=== PATIENT | female | born 2000 | race Caucasian/White ===

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

== ENCOUNTER 2021-03-28 16:10 | Emergency (ER) | payer OTHER ==
[2021-03-28 17:00] VITALS: BP 99/60; PULSE 75; RESP 20; TEMP 98.4
--- NOTE | 2021-03-28 18:19 | ED ---
General Adult HPI - General Chief complaint: Skin/Abscess/Foreign Body Stated complaint: rash Time Seen by Provider: 03/28/21 18:09 Source: patient Mode of arrival: ambulatory Limitations: no limitations - History of Present Illness Initial comments: Patient presents to the ED complaining of having a painful red "bump" to her right lower quadrant abdominal wall for the past week or 2. Patient states that she saw her PCP for this issue, and she states that she was started on a course of Bactrim 3 days ago. Patient states that she has a history of MRSA, and she is concerned that her bump is from a MRSA infection. Patient denies trauma or injury, fever or chills, headache, chest pain, dyspnea, dizziness, nausea or vomiting, or any other symptoms or complaints. - Related Data Home Medications Medication Instructions Recorded Confirmed Docusate [Colace] 100 mg PO DAILY 10/14/18 10/14/18 Ferrous Sulfate [Feosol] 325 mg PO DAILY 10/14/18 10/14/18 Ondansetron [Zofran] 4 mg PO Q12HR PRN 10/14/18 10/14/18 Sertraline [Zoloft] 50 mg PO DAILY 10/14/18 10/14/18 Previous Rx's Medication Instructions Recorded Cephalexin [Keflex] 500 mg PO Q6HR #40 cap 10/14/18 Allergies Allergy/AdvReac Type Severity Reaction Status Date / Time No Known Allergies Allergy Verified 03/28/21 17:00 Review of Systems ROS Statement: Those systems with pertinent positive or pertinent negative responses have been documented in the HPI. ROS Other: All systems not noted in ROS Statement are negative. Past Medical History Past Medical History: No Reported History Additional Past Medical History / Comment(s): Cholestasis History of Any Multi-Drug Resistant Organisms: MRSA Date of last positivie culture/infection: 10/2010 MDRO Source:: Left lower leg wound Past Surgical History: Section Past Anesthesia/Blood Transfusion Reactions: No Reported Reaction Additional Past Anesthesia/Blood Transfusion Reaction / Comment(s): no anesthesia Past Psychological History: No Psychological Hx Reported Smoking Status: Vaper Past Alcohol Use History: None Reported Past Drug Use History: None Reported - Past Family History Mother Family Medical History: No Reported History General Exam Limitations: no limitations General appearance: alert, in no apparent distress Head exam: Present: atraumatic, normocephalic Eye exam: Present: normal appearance, EOMI ENT exam: Present: mucous membranes moist Respiratory exam: Present: normal lung sounds bilaterally. Absent: respiratory distress, wheezes, rales, rhonchi, stridor Cardiovascular Exam: Present: regular rate, normal rhythm, normal heart sounds, other (Normal radial pulses bilaterally) GI/Abdominal exam: Present: soft, other (A 2 cm x 1 cm tender, fluctuant, erythematous mass is noted to the patient's right lower quadrant abdominal wall consistent with superficial abscess). Absent: distended Neurological exam: Present: alert, oriented X3 Psychiatric exam: Present: normal affect, normal mood Skin exam: Present: warm, dry, intact Course Vital Signs 03/28/21 16:52 Temperature 98.4 F Pulse Rate 75 Respiratory 20 Rate Blood Pressure 99/60 O2 Sat by Pulse 100 Oximetry Procedures - Incision & Drainage Consent Obtained: verbal consent Indication: Abscess Site: abdomen Size (cm): 2 Anesthetic Used: lidocaine 1% Amount (mLs): 1 I&D Cleaning Method: Betadine Sterile Field Used?: Yes Scalpel Used: #11 Needle Aspiration Performed?: No Irrigation Performed?: No I&D Drainage Obtained: Pus, Blood Packing: Iodoform Culture Obtained?: No Patient Tolerated Procedure: well, no complications Medical Decision Making - Medical Decision Making A successful I&D was performed of the patient's abdominal wall abscess with drainage of purulent fluid. An iodoform packing was placed. Patient was instructed to complete the course of Bactrim that she is currently taking, and to follow up closely with her primary care provider. Patient was instructed to return to the ED should she not be able to follow up with her primary care provider for packing removal. Patient was counseled about abscesses, and she was clearly spine return and follow-up instructions. Patient feels comfortable with this plan. Disposition Clinical Impression: Cutaneous abscess of abdominal wall Disposition: HOME SELF-CARE Condition: Stable Instructions (If sedation given, give patient instructions): Abscess Incision and Drainage (ED), Abscess (ED) Additional Instructions: Return to the emergency department immediately should you develop new or worsening pain, increased redness, a fever, shortness of breath, feeling dizzy or faint, or new or worsening symptoms. Follow up closely with your primary care provider. Is patient prescribed a controlled substance at d/c from ED?: No Referrals: Jaki Durán MD [Primary Care Provider] - 1-2 days Time of Disposition: 18:55
== END 2021-03-28 19:37 | disposition home or self-care (01) ==
LOC: EC 16:10
DX: L02.211 Cutaneous abscess of abdominal wall (principal); F17.290 Nicotine dependence, other tobacco product, uncomplicated
CPT/HCPCS: 10060; 10061; 99283

== ENCOUNTER 2022-01-18 18:19 | Emergency (ER) | payer OTHER ==
[2022-01-18 18:23] VITALS: BP 118/80; PULSE 98; RESP 20; TEMP 97.4
[2022-01-18 20:16] LABS: HCT 36.5 % (34.0-46.0); HGB 12.3 gm/dL (11.4-16.0); MCHC 33.6 g/dL (31.0-37.0); MCV 92.2 fL (80.0-100.0); Mean Platelet Volume 8.2; Platelet Count 320 k/uL (150-450); RBC 3.96 m/uL (3.80-5.40); RDW 13.4 % (11.5-15.5); WBC 8.9 k/uL (3.8-10.6)
[2022-01-18 20:28] LABS: ALT 12 U/L (4-34); AST 23 U/L (14-36); African American GFR (CKD) >90 (>60 ml/min/1.73 sqM); Albumin 4.3 g/dL (3.5-5.0); Alkaline Phosphatase 56 U/L (38-126); Anion Gap 8 mmol/L; Blood Urea Nitrogen 9 mg/dL (7-17); Calcium 9.1 mg/dL (8.4-10.2); Carbon Dioxide 24 mmol/L (22-30); Chloride 105 mmol/L (98-107); Glucose 99 mg/dL (74-99); Non-African American GFR(CKD) >90 (>60 ml/min/1.73 sqM); Potassium 3.8 mmol/L (3.5-5.1); Sodium 137 mmol/L (137-145); Total Bilirubin 0.4 mg/dL (0.2-1.3); Total Protein 7.2 g/dL (6.3-8.2)
--- NOTE | 2022-01-18 21:28 | US ---
EXAMINATION TYPE: Transabdominal DATE OF EXAM: 01/18/2022 9:05 PM COMPARISON: NONE CLINICAL HISTORY: vaginal bleeding, 6 weeks. Patient states she is 6 weeks ; patient states s he has had worsening vaginal bleeding with clots for 4 days. EXAM PERFORMED: Transvaginal (TV) EXAM MEASUREMENTS: GESTATIONAL AGE / DATING Physician Established: Not yet established Dates by LMP: 12/03/21 (6 weeks/4 days) EDC: 09/09/22 Dates by First Scan: No previous this is first scan Dates by Current Scan for: Unable to date by today's study MATERNAL ANATOMY Uterus: 7.7 x 5.3 x 5.4 cm; endometrium measuring 1.1 cm; possible early gestational sac measuring 0. 6 x 0.3 x 0.3 cm Right Ovary: 2.9 x 3.0 x 2.1 cm Left Ovary: 3.3 x 1.4 x 1.8 cm Post CDS / Adnexa: Possible pelvic congestion Presence of free fluid: no Presence of corpus luteal cyst: no Presence of subchorionic bleed: no Date of LMP: 12/03/21 Beta HcG (if available): Not available at this time IMPRESSION: Possible early intrauterine gestational sac. No adnexal mass.
--- NOTE | 2022-01-18 21:59 | ED ---
Female Urogenital HPI - General Chief complaint: Vaginal Bleeding Stated complaint: Vaginal bleeding-6 weeks preg. Time Seen by Provider: 01/18/22 21:49 Source: patient Mode of arrival: ambulatory Limitations: no limitations - History of Present Illness Initial comments: Patient is a 21-year-old A0 female who presents to the emergency department with a chief complaint vaginal bleeding 4 days. Patient states she had a positive home test about 4 weeks ago. LMP was 12/03/21. Patient reports she had blood work done at her primary care provider 2 weeks ago which confirmed . Patient states she has consistent blood on toilet paper when she wipes after urinating. Patient noticed 3 blood clots today. Patient reports mild abdominal cramping. She states that her former [employer] is retiring and that all the local OB/GYNs are not taking new patients. She is seeking a new [employer]. Patient has no other concerns at this time including fever, chills, headache, shortness of breath, cough, chest pain, abdominal pain, nausea, vomiting, and burning with urination. - Related Data Home Medications Medication Instructions Recorded Confirmed [id number] Acid 1 cap PO DAILY 01/18/22 01/18/22 [-U Capsule (formulary)] Previous Rx's Medication Instructions Recorded Cephalexin [Keflex] 500 mg PO Q6HR 5 Days #20 cap 01/18/22 Allergies Allergy/AdvReac Type Severity Reaction Status Date / Time No Known Allergies Allergy Verified 01/18/22 22:49 Review of Systems ROS Statement: Those systems with pertinent positive or pertinent negative responses have been documented in the HPI. ROS Other: All systems not noted in ROS Statement are negative. Past Medical History Past Medical History: No Reported History Additional Past Medical History / Comment(s): Cholestasis History of Any Multi-Drug Resistant Organisms: MRSA Date of last positivie culture/infection: 10/2010 MDRO Source:: Left lower leg wound Past Surgical History: Section Past Anesthesia/Blood Transfusion Reactions: No Reported Reaction Additional Past Anesthesia/Blood Transfusion Reaction / Comment(s): no anesthesia Past Psychological History: No Psychological Hx Reported Smoking Status: Vaper Past Alcohol Use History: None Reported Past Drug Use History: None Reported - Past Family History Mother Family Medical History: No Reported History General Exam Limitations: no limitations General appearance: alert, in no apparent distress Head exam: Present: atraumatic, normocephalic, normal inspection Eye exam: Present: normal appearance, PERRL, EOMI. Absent: scleral icterus, conjunctival injection, periorbital swelling Neck exam: Present: normal inspection, full ROM Respiratory exam: Present: normal lung sounds bilaterally. Absent: respiratory distress, wheezes, rales, rhonchi, stridor Cardiovascular Exam: Present: regular rate, normal rhythm, normal heart sounds. Absent: systolic murmur, diastolic murmur, rubs, gallop, clicks GI/Abdominal exam: Present: soft, normal bowel sounds. Absent: distended, tenderness, guarding, rebound, rigid Back exam: Present: normal inspection Neurological exam: Present: alert, oriented X3, CN II-XII intact Psychiatric exam: Present: normal affect, normal mood Skin exam: Present: warm, dry, intact, normal color. Absent: rash Course Vital Signs 01/18/22 18:21 Temperature 97.4 F L Pulse Rate 98 Respiratory 20 Rate Blood Pressure 118/80 O2 Sat by Pulse 100 Oximetry Medical Decision Making - Medical Decision Making This is a 21-year-old female who presents with 4 days of vaginal bleeding with 3 blood clots today. Hemoglobin is within normal limits at 12.3. Serum beta hCG is 550.2. Patient has asymptomatic bacteriuria. Ultrasound was obtained which shows possible early intrauterine gestational sac and no adnexal mass. Blood type is A positive. RhoGAM is not indicated at this time. Patient was given prescription for repeat serum beta hCG in 48 hours. She is instructed to schedule an appointment with Dr. Smith at earliest availability. She will be discharged with strict return parameters and Keflex prescription for UTI. Patient verbalizes understanding and is agreeable to plan. Patient discharged in stable condition. Dr. Watkins is my attending. - Lab Data Result diagrams: 01/18/22 20:00 01/18/22 20:00 Lab Results 01/18/22 01/18/22 01/18/22 Range/Units 20:00 20:00 20:00 WBC 8.9 (3.8-10.6) k/uL RBC 3.96 (3.80-5.40) m/uL Hgb 12.3 (11.4-16.0) gm/dL Hct 36.5 (34.0-46.0) % MCV 92.2 (80.0-100.0) fL MCH 31.0 (25.0-35.0) pg MCHC 33.6 (31.0-37.0) g/dL RDW 13.4 (11.5-15.5) % Plt Count 320 (150-450) k/uL MPV 8.2 Sodium 137 (137-145) mmol/L Potassium 3.8 (3.5-5.1) mmol/L Chloride 105 (98-107) mmol/L Carbon Dioxide 24 (22-30) mmol/L Anion Gap 8 mmol/L BUN 9 (7-17) mg/dL Creatinine 0.56 (0.52-1.04) mg/dL Est GFR (CKD-EPI)AfAm >90 (>60 ml/min/1.73 sqM) Est GFR (CKD-EPI)NonAf >90 (>60 ml/min/1.73 sqM) Glucose 99 (74-99) mg/dL Calcium 9.1 (8.4-10.2) mg/dL Total Bilirubin 0.4 (0.2-1.3) mg/dL AST 23 (14-36) U/L ALT 12 (4-34) U/L Alkaline Phosphatase 56 (38-126) U/L Total Protein 7.2 (6.3-8.2) g/dL Albumin 4.3 (3.5-5.0) g/dL HCG, Quant 550.2 mIU/mL Urine Color Urine Appearance (Clear) Urine pH (5.0-8.0) Ur Specific [place] (1.001-1.035) Urine Protein (Negative) Urine Glucose (UA) (Negative) Urine Ketones (Negative) Urine Blood (Negative) Urine Nitrite (Negative) Urine Bilirubin (Negative) Urine Urobilinogen (<2.0) mg/dL Ur Leukocyte Esterase (Negative) Urine RBC (0-5) /hpf Urine WBC (0-5) /hpf Ur Squamous Epith Cells (0-4) /hpf Urine Bacteria (None) /hpf Urine Mucus (None) /hpf Blood Type Blood Type Recheck Bld Type Recheck Status 01/18/22 01/18/22 Range/Units 22:30 22:31 WBC (3.8-10.6) k/uL RBC (3.80-5.40) m/uL Hgb (11.4-16.0) gm/dL Hct (34.0-46.0) % MCV (80.0-100.0) fL MCH (25.0-35.0) pg MCHC (31.0-37.0) g/dL RDW (11.5-15.5) % Plt Count (150-450) k/uL MPV Sodium (137-145) mmol/L Potassium (3.5-5.1) mmol/L Chloride (98-107) mmol/L Carbon Dioxide (22-30) mmol/L Anion Gap mmol/L BUN (7-17) mg/dL Creatinine (0.52-1.04) mg/dL Est GFR (CKD-EPI)AfAm (>60 ml/min/1.73 sqM) Est GFR (CKD-EPI)NonAf (>60 ml/min/1.73 sqM) Glucose (74-99) mg/dL Calcium (8.4-10.2) mg/dL Total Bilirubin (0.2-1.3) mg/dL AST (14-36) U/L ALT (4-34) U/L Alkaline Phosphatase (38-126) U/L Total Protein (6.3-8.2) g/dL Albumin (3.5-5.0) g/dL HCG, Quant mIU/mL Urine Color Yellow Urine Appearance Clear (Clear) Urine pH 7.5 (5.0-8.0) Ur Specific [place] 1.018 (1.001-1.035) Urine Protein Negative (Negative) Urine Glucose (UA) Negative (Negative) Urine Ketones Negative (Negative) Urine Blood Moderate H (Negative) Urine Nitrite Negative (Negative) Urine Bilirubin Negative (Negative) Urine Urobilinogen <2.0 (<2.0) mg/dL Ur Leukocyte Esterase Negative (Negative) Urine RBC 20 H (0-5) /hpf Urine WBC 2 (0-5) /hpf Ur Squamous Epith Cells 1 (0-4) /hpf Urine Bacteria Rare H (None) /hpf Urine Mucus Rare H (None) /hpf Blood Type A Positive Blood Type Recheck A Pos Bld Type Recheck Status No Disposition Clinical Impression: Vaginal bleeding affecting early , Asymptomatic bacteriuria Disposition: HOME SELF-CARE Condition: Fair Instructions (If sedation given, give patient instructions): Threatened Mi scarriage (ED) Additional Instructions: Please return to emergency department or lab for repeat serum hCG level in 48 hours. Please take Keflex as prescribed. Schedule an appointment with Dr. Smith at earliest availability. Return to the emergency department if you ex perience new, concerning, or worsening symptoms, including but not limited to severe pain or bleeding. Prescriptions: Cephalexin [Keflex] 500 mg PO Q6HR 5 Days #20 cap Is patient prescribed a controlled substance at d/c from ED?: No Referrals: Jaki Durán MD [Primary Care Provider] - 1-2 days Jadon Smith MD [STAFF PHYSICIAN] - 1-2 days Time of Disposition: 22:04
[2022-01-18 22:46] LABS: Appearance,Urine Clear (Clear); Bacteria,Urine Rare /hpf; Bilirubin,Urine Negative (Negative); Blood,Urine Moderate (Negative); Color,Urine Yellow; Glucose,Urine (UA) Negative (Negative); Ketones,Urine Negative (Negative); Leukocyte Esterase,Urine Negative (Negative); Mucus,Urine Rare /hpf; Nitrite,Urine Negative (Negative); PH, Urine 7.5 (5.0-8.0); Protein,Urine Negative (Negative); RBC,Urine 20 /hpf (0-5); Specific Gravity,Urine 1.018 (1.001-1.035); Squamous Epithelial Cell,Urine 1 /hpf (0-4); Urobilinogen,Urine <2.0 mg/dL (<2.0); WBC,Urine 2 /hpf (0-5)
[2022-01-18] MEDS ORDERED: CEPHALEXIN 250 MG CAP PO STA (22:59)
[2022-01-18] MEDS ORDERED: CEPHALEXIN 500 MG CAP PO STA (23:01)
== END 2022-01-18 23:53 | disposition home or self-care (01) ==
LOC: EC 18:19
DX: O26.851 Spotting complicating pregnancy, first trimester (principal); O23.91 Unspecified genitourinary tract infection in pregnancy, first trimester; F17.209 Nicotine dependence, unspecified, with unspecified nicotine-induced disorders; Z3A.01 Less than 8 weeks gestation of pregnancy
CPT/HCPCS: 36415; 76801; 76817; 80053; 81001; 84702; 85027; 86900; 86901; 99284

== ENCOUNTER 2022-10-07 21:29 | Outpatient (CLI) | payer OTHER ==
[2022-10-07 22:27] VITALS: BP 103/59; PULSE 83; RESP 14; TEMP 98
--- NOTE | 2022-10-13 19:47 | P.MSEPDOC ---
Presenting Problems - Arrival Data Date of Arrival on Unit: 10/07/22 Time of Arrival on Unit: 21:29 Mode of Transport: Ambulatory - Complaint OB-Reason for Admission/Chief Complaint: Decreased Movement Medical History - Information : 4 Para: 2 Term: 1 : 1 Abortions: Spontaneous or Elective: 1 Number of Living Children: 2 - Gestational Age Gestational Age by ROBBIN (wks/days): 20 Weeks and 0 Days Review of Systems - Review of Systems Constitutional: No problems Breast: No problems ENT: No problems Cardiovascular: No problems Respiratory: No problems Gastrointestinal: No problems Genitourinary: No problems Musculoskeletal: No problems Neurological: No problems Skin: No problems Vital Signs - Temperature Temperature: 98.0 F Temperature Source: Temporal Artery Scan - Pulse Pulse Oximetery Pulse Rate: 83 Pulse Assessment Method: Pulse Oximetry - Respirations Respiratory Rate: 14 Oxygen Delivery Method: Room Air O2 Sat by Pulse Oximetry: 100 - Blood Pressure Right Arm Blood Pressure: 103/59 Blood Pressure Mean: 73 Blood Pressure Source: Automatic Cuff Physician Notification - Physician Notified Physician Notified Date: 10/07/22 Physician Notified Time: 22:09 Physician: Carmen Low S - Notification Comment Comment: Dr. Low notified of pts arrival to triage. Report given including maternal. and status. Pt okay to D/C home with routine follow-up with her primary provider. POC discussed with pt, who verbalized understanding and agreement. Maternal Triage Index - Maternal Triage Index Presenting for scheduled procedure w/no complaint: No - Stat/Priority 1 Stat Priority 1: No - Urgent/Priority 2 Urgent Priority 2: No - Prompt/Priority 3 Prompt Priority 3: No - Non-Urgent/Priority 4 Non-Urgent Priority 4: Yes Criteria Met for Priority 4: Pt is a with ROBBIN [birth year] here at 20.0. weeks of gestation with c/o decreased FM since 1700. today. Disposition - Disposition OB Disposition: Discharge to home Discharge Date: 10/07/22 Discharge Time: 22:16 I agree with the RN Medical Screening Exam: Yes Case reviewed; plan agreed upon as documented in EMR&OBIX.: Yes Diagnosis: DECREASED MOVEMENTS, SECOND TRIMESTER, UNSP
== END 2022-10-07 22:16 ==
LOC: FBPOP 21:29
PROVIDERS: ATTEND Obstetrics & Gynecology Obstetrics
DX: O36.8120 Decreased fetal movements, second trimester, not applicable or unspecified (principal); Z3A.20 20 weeks gestation of pregnancy; Z87.891 Personal history of nicotine dependence
CPT/HCPCS: 99213